=== PATIENT | male | born 1975 | race Caucasian/White ===

== ENCOUNTER → 2021-07-24 | Outpatient (CLI) | payer BC, OTHER ==
--- NOTE | 2021-07-24 15:30 | Diagnostic Imaging Report ---
INDICATION: Lump at the xiphoid process. FINDINGS: Real-time imaging shows prominent curvature to the xiphoid which does correlate with the palpable area. No destructive bony changes or soft tissue masses are seen. IMPRESSION: Prominent xiphoid process of the sternum. Dictated by: Dictated on workstation # [id number]
== END ==
PROVIDERS: ATTEND Family Medicine
DX: R22.2 Localized swelling, mass and lump, trunk (principal)
CPT/HCPCS: 76604